=== PATIENT | male | born 1925 | race Caucasian/White ===

== ENCOUNTER → 2016-09-07 | Outpatient (CLI) | payer OTHER ==
--- NOTE | 2016-09-10 13:11 | CT ---
EXAM DESCRIPTION: CT ABDOMEN PELVIS WITHOUT IV CONTRAST CLINICAL HISTORY: HEMATURIA COMPARISON: None. TECHNIQUE: Noncontrast spiral CT with coronal and sagittal reformatted images FINDINGS: Visualized lung bases are clear. Heart size is normal. Cardiac pacemaker No mass lesion in the liver, spleen, pancreas or adrenal glands 7.7 cm simple cyst upper pole left kidney. No other renal mass. No hydronephrosis, nephrolithiasis, ureterolithiasis or bladder calculus. Marked hypertrophy of the prostate indenting the base the urinary bladder. Thickened urinary bladder wall mostly anteriorly. Smooth thickening without focal filling defect. This is likely a manifestation of bladder wall hypertrophy from chronic low-grade bladder outlet obstruction Previous cholecystectomy. No biliary or pancreatic duct dilation Small sliding-type hiatal hernia. No mass lesion or inflammation in the stomach, small or large intestine. Terminal ileum and appendix are normal Numerous scattered diverticula throughout the sigmoid colon without diverticulitis No acute bony abnormality. 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 Chondrocalcinosis and osteoarthritis of both hips. Multilevel degenerative change throughout the thoracic and lumbar spine. 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
== END | disposition home or self-care (01) ==
LOC: CT 07:49
PROVIDERS: ATTEND Family Medicine
DX: N28.1 Cyst of kidney, acquired (principal); R31.29 Other microscopic hematuria

== ENCOUNTER → 2016-10-08 | Outpatient (CLI) | payer OTHER | END | disposition home or self-care (01) | LOC: GMAH 10:24 | PROVIDERS: ATTEND Family Medicine | DX: Z12.5 Encounter for screening for malignant neoplasm of prostate (principal); E78.2 Mixed hyperlipidemia | CPT/HCPCS: 84443; 84550; G0103 ==